=== PATIENT | male | born 1960 | race Caucasian/White ===

== ENCOUNTER → 2018-03-25 | Outpatient (CLI) | payer OTHER | END | disposition home or self-care (01) | LOC: CDC 14:41 | DX: Z01.810 Encounter for preprocedural cardiovascular examination (principal); K40.90 Unilateral inguinal hernia, without obstruction or gangrene, not specified as recurrent; R94.31 Abnormal electrocardiogram [ECG] [EKG] | CPT/HCPCS: 93000 ==

== ENCOUNTER 2018-04-03 05:35 | Day surgery (SDC) | payer OTHER ==
[~2018-04-03] VITALS: Ht 177.8 cm; Wt 72.6 kg
[~2018-04-03 05:35] MED LIST: PROAIR HFA8.5 GM IH; VITAMIN B COMP1 EACH PO
[2018-04-03 06:09] VITALS: BP 111/67
[2018-04-03] MEDS ORDERED: NORCO 5/3251 TABLET PO (09:35)
[2018-04-03 11:52] VITALS: BP 127/59
[2018-04-03 12:55] VITALS: BP 113/56
[2018-04-03 13:43] VITALS: BP 108/55
== END 2018-04-03 13:50 | disposition home or self-care (01) ==
LOC: SDC
DX: K40.90 Unilateral inguinal hernia, without obstruction or gangrene, not specified as recurrent (principal); D17.6 Benign lipomatous neoplasm of spermatic cord; Z87.891 Personal history of nicotine dependence; E78.5 Hyperlipidemia, unspecified; J45.909 Unspecified asthma, uncomplicated; Z82.5 Family history of asthma and other chronic lower respiratory diseases; Z88.0 Allergy status to penicillin; Z88.1 Allergy status to other antibiotic agents
CPT/HCPCS: C1727; C1781; J0330; J0690; J1100; J1170; J1885; J2250; J2405; J2710; J2765; J7643